=== PATIENT | female | born 2000 | race Caucasian/White ===

== ENCOUNTER 2019-04-12 19:23 | Emergency (ER) | payer OTHER ==
[~2019-04-12] VITALS: Ht 177.8 cm; Wt 68.5 kg
--- NOTE | 2019-04-12 20:22 | NUR ---
PT PRESENTED TO THE ER WITH A C/O VAGINAL PAIN, BURNING, AND ITCHING. PT C/O OF HAVING DISCHARGE. PT AMBULATED TO ER #16 WITH A STEADY GAIT. PT'S BOYFRIEND IS AT THE BEDSIDE.
--- NOTE | 2019-04-12 20:22 | NUR ---
PELVIC EXAM IN PROGRESS WITH Kiran RUEDA NP.
[2019-04-12 20:24] LABS: APPEARANCE,URINE Clear (CLEAR); BILIRUBIN,URINE Negative (NEGATIVE); BLOOD, URINE Negative Ery/uL (NEGATIVE); COLOR,URINE Yellow (YELLOW); KETONES,URINE Negative (NEGATIVE); LEUKOCYTE ESTERASE ,URINE Small (NEGATIVE); NITRITE, URINE Negative (NEGATIVE); PH,URINE 5.5 (5.0-8.0); PROTEIN,URINE Negative (NEGATIVE); UGLUCOSE Negative (NEGATIVE); UROBILINOGEN,URINE 0.2 EU/dL (0.2)
--- NOTE | 2019-04-12 20:29 | NUR ---
SAMPLES OBTAINED FROM PELVIC EXAM
--- NOTE | 2019-04-12 20:30 | NUR ---
PELVIC EXAM DONE.
[2019-04-12 20:37] LABS: BACTERIA,URINE 1+ /HPF (None Seen); RBC,URINE NONE SEEN /HPF (0-2); SQUAMOUS EPITHELIAL CELL,UR Few /HPF (None Seen)
--- NOTE | 2019-04-12 21:31 | NUR ---
PT APPEARS TO BE WAITING PATIENTLY. NO S/S OF PAIN OR DISTRESS NOTED.
--- NOTE | 2019-04-12 21:58 | NUR ---
PT OR HER BOYFRIEND, MAGALI HOWE, WILL CALL Kiran RUEDA NP FOR RESULTS ON THURSDAY AT NOON.
--- NOTE | 2019-04-12 21:58 | NUR ---
Patient discharged to home in stable condition. Written and verbal after care instructions given. Patient verbalizes understanding of instruction AND RX. PT AMBULATED OUT WITH A STEADY GAIT. VSS. NAD NOTED.
[2019-04-12 22:00] VITALS: BP 127/86
== END 2019-04-12 22:01 | disposition home or self-care (01) ==
LOC: ER 19:28
DX: N76.0 Acute vaginitis (principal); B96.89 Other specified bacterial agents as the cause of diseases classified elsewhere; N72 Inflammatory disease of cervix uteri
CPT/HCPCS: 81000-TC; 84703-TC; 87081-TC; 87086-TC; 87110-TC; 87210-TC; 87491; 87591